=== PATIENT | male | born 1995 | race Caucasian/White ===

== ENCOUNTER 2022-09-08 20:54 | Outpatient (CLI) | payer MEDICARE, MEDICAID, SELFPAY ==
--- NOTE | 2022-09-15 11:21 | W.PM.SLEEP ---
Sleep Study Details Details Interpreting Provider: Edwige Date of Sleep Study: 09/08/22 Sleep Study Details: STUDY TYPE:? Hospital ? BMI:? 45.8 ORDERING PROVIDER:Renetta Gibbons INDICATION:? Concerns about sleep apnea ? SLEEP SUMMARY:? Sleep time 390.5, efficiency 87.4, arousal index 11.1 RESPIRATORY SUMMARY:? Mean oxygen awake 91 asleep 89 minimum 33720.8 minutes oxygen between 80 and 88% AHI 39.9 REM AHI 240 in the nonsupine position there was no supine REM sleep seen. Supine AHI 45.8, nonsupine AHI 32.1 PERIODIC LIMB MOVEMENTS OF SLEEP:? Index 3.2 index with arousal 0 CARDIAC:? Awake 105 asleep 105, no arrhythmias noted IMPRESSION:? Severe obstructive sleep apnea with significant hypo oxygenation. No REM stage sleep was seen in the supine position. RECOMMENDATION: In-lab titration versus AutoSet CPAP at 4-17. Once effective CPAP therapy is established recommend overnight oximetry. Note that the patient's baseline oxygen is quite low and further cardiopulmonary evaluation is possibly indicated. In addition weight loss is recommended.
== END 2022-09-08 20:55 | disposition home or self-care (01) ==
LOC: SLEEP 20:55
PROVIDERS: PCP Otolaryngology; Visit Provider Otolaryngology
DX: G47.33 Obstructive sleep apnea (adult) (pediatric) (principal)
CPT/HCPCS: 95810